=== PATIENT | male | born 1980 | race Hispanic/Latino ===

== ENCOUNTER 2025-08-12 11:46 | Emergency (ER) | payer OTHER ==
[~2025-08-12] VITALS: Ht 157.5 cm; Wt 70.1 kg
[2025-08-12 13:48] VITALS: BP 134/87; TEMP 98; O2SAT 97
== END 2025-08-12 13:49 | disposition home or self-care (01) ==
LOC: M ED 11:46
DX: S63.501A Unspecified sprain of right wrist, initial encounter (principal); W00.0XXA Fall on same level due to ice and snow, initial encounter; Y92.480 Sidewalk as the place of occurrence of the external cause; Y93.89 Activity, other specified; Y99.9 Unspecified external cause status